=== PATIENT | male | born 1965 | race Caucasian/White ===

== ENCOUNTER 2018-12-27 07:51 | Outpatient (CLI) | payer OTHER | END 2018-12-27 07:52 | disposition home or self-care (01) | LOC: ULT 07:51 | PROVIDERS: ATTEND Psychiatry & Neurology Neurology | DX: Z02.71 Encounter for disability determination (principal); I73.9 Peripheral vascular disease, unspecified; G62.9 Polyneuropathy, unspecified | CPT/HCPCS: 93922 ==